=== PATIENT | male | born 1990 | race Caucasian/White ===

== ENCOUNTER 2022-04-08 20:32 | Emergency (ER) | payer BC ==
[2022-04-08] MEDS ORDERED: Sodium Chloride 0.9% 2.5 ML Syringe FLUSH PRN (20:45)
[2022-04-08] MEDS ORDERED: Sodium Chloride 0.9% 10 ML Syringe FLUSH PRN (20:45)
[2022-04-08] MEDS ORDERED: Sodium Chloride 0.9% 1,000 ML IV ONE (20:45)
[2022-04-08 21:13] LABS: BLOOD UREA NITROGEN,BUN 22 mg/dL (7.0-18.0); CARBON DIOXIDE,CO2 30.5 mmol/L (21.0-32.0); CHLORIDE,CL 102 mmol/L (98-107); GLUCOSE RANDOM 114 mg/dL (74-106); POTASSIUM,K 3.9 mmol/L (3.5-5.1); SODIUM,NA 137 mmol/L (136-148)
[2022-04-08] MEDS ORDERED: Iopamidol 755 MG/ML 500 ML Multipack Bottle IVPUSH STA (22:06)
[2022-04-08] MEDS ORDERED: Ketorolac 30 MG/ML SDV IVPUSH ONE (22:25)
== END 2022-04-08 23:41 | disposition home or self-care (01) ==
LOC: MW.ED 20:32
DX: U07.1 COVID-19 (principal); R07.89 Other chest pain; R06.02 Shortness of breath; I10 Essential (primary) hypertension; Z86.16 Personal history of COVID-19; Z88.8 Allergy status to other drugs, medicaments and biological substances
CPT/HCPCS: 36415; 71045; 71275; 80053; 84484; 85025; 85379; 93005; 96361; 96374; 99285; J1885; J3490; J7030; Q9967

== ENCOUNTER 2024-11-22 04:08 | Emergency (ER) | payer BC | END 2024-11-22 04:39 | disposition home or self-care (01) | LOC: MW.ED 04:08 | DX: L76.82 Other postprocedural complications of skin and subcutaneous tissue (principal); Z88.6 Allergy status to analgesic agent; Y83.9 Surgical procedure, unspecified as the cause of abnormal reaction of the patient, or of later complication, without mention of misadventure at the time of the procedure | CPT/HCPCS: 99283 ==